=== PATIENT | female | born 2000 | race African-American/Black ===

== ENCOUNTER → 2024-03-05 | Outpatient (CLI) | payer OTHER | LOC: COL.LAB 11:57 | PROVIDERS: Physician Assistant | DX: N91.2 Amenorrhea, unspecified (principal) ==

== ENCOUNTER 2024-03-16 08:53 | Emergency (ER) | payer OTHER ==
[~2024-03-16] VITALS: Ht 165.1 cm; Wt 66.4 kg
[2024-03-16] MEDS ORDERED: NS 1,000 ML IV ONE (09:30)
[2024-03-16] MEDS ORDERED: Ketorolac 30 MG/ML VIAL IV ONE (09:30)
[2024-03-16 09:38] LABS: BASO % 0.4 % (0.0-2.0); EOS # 0.1 K/mm3 (0.0-0.7); EOS % 1.8 % (0.0-4.0); GRAN # 3.3 K/mm3 (1.4-6.5); GRAN % 59.4 % (42.2-75.2); HEMATOCRIT 42.4 % (37.0-47.0); HEMOGLOBIN 14.2 g/dl (12.5-16.0); LYMPH # 1.7 K/mm3 (1.2-3.4); LYMPH % 29.7 % (20.0-51.0); MEAN CELL VOLUME 93 fl (80.0-100.0); MEAN CORPUSCULAR HEMOGLOBIN 31 pg (27-31); MEAN CORPUSCULAR HGB CONC 34 g/dl (33.0-37.0); MEAN PLATELET VOLUME 10.9 fl (7.4-10.4); MONO # 0.5 K/mm3 (0.1-0.6); MONO % 8.5 % (1.7-9.3); PLATELET COUNT 253 K/mm3 (130-400); RED BLOOD COUNT 4.58 M/mm3 (4.10-5.30); REDCELL DISTRIBUTION WIDTH-CV 12.5 % (11.5-14.5)
[2024-03-16 10:09] LABS: ALBUMIN 4.1 g/dL (3.5-5.0); BILIRUBIN,TOTAL 0.4 mg/dL (0.2-1.2); C-REACTIVE PROTEIN 0.16 mg/dL (0.00-0.50); CALCIUM 9.7 mg/dL (8.4-10.2); CREATININE, serum 0.82 mg/dL (0.57-1.11); POTASSIUM 3.9 mEq/L (3.5-4.5); TOTAL PROTEIN 7.3 g/dl (6.2-8.1)
[2024-03-16 10:21] LABS: URINE APPEARANCE CLEAR (CLEAR/HAZY); URINE BLOOD NEGATIVE (NEGATIVE); URINE COLOR YELLOW (YELLOW); URINE GLUCOSE NEGATIVE (NEGATIVE); URINE KETONE NEGATIVE (NEGATIVE); URINE NITRATE NEGATIVE (NEGATIVE); URINE PROTEIN(semi-quant) NEGATIVE (NEGATIVE); URINE UROBILINOGEN 0.2 E.U/dL (0.2-1.0)
[2024-03-16 10:29] LABS: PROLACTIN 7.5 ng/mL (5.18-26.53); THYROID STIMULATING HORMONE 1.314 uIU/mL (0.350-4.940)
[2024-03-16 10:47] LABS: COLLECTION METHOD CLEAN CATCH
[2024-03-16] MEDS ORDERED: NAPROSYN500 MG PO (13:18)
[2024-03-16 13:45] VITALS: BP 117/87; PULSE 73; TEMP 98.2
== END 2024-03-16 13:45 | disposition home or self-care (01) ==
LOC: COL.ER 08:53
PROVIDERS: Emergency Medicine
DX: R10.2 Pelvic and perineal pain (principal)
CPT/HCPCS: J1885; J7030